=== PATIENT | female | born 1995 | race Caucasian/White ===

== ENCOUNTER 2016-09-09 03:58 | Inpatient (IN) | payer MEDICAID ==
[~2016-09-09] VITALS: Ht 195.6 cm; Wt 82.3 kg
[2016-09-09 04:29] VITALS: Ht 195.6 cm; Wt 82.3 kg
[2016-09-09 04:30] VITALS: BP 126/68; PULSE 75; RESP 18
--- NOTE | 2016-09-09 04:33 | HP ---
Date/Time of Note Date/Time of Note DATE: 09/09/16 TIME: 04:29 OB - History Hx of Present Free Text/Dictation 20 yo P1 @ term, no PNC, presented w PROM Chief Complaint: PROM Estimated Due Date: Sep 19, 2016 : 2 Para: 1 Spontaneous : 0 Therapeutic : 0 Care: None Ultrasounds: No ultrasounds Other Concerns: no PNC Past Family/Social History * Past Medical, Surgical, Family and Obstetric Histories reviewed from chart. OB Admission Exam Physical Exam HEENT: WNL Abdomen: WNL Extremities: Normal Cervical Dilatation: 3cm Effacement: 50% Station: -3 Membranes: Ruptured Heart Rate: 120's Accelerations: Accelerations Present Decelerations: No Decelerations Varibility: Moderate Contractions on Admission: >10 Minutes Apart Intensity: Mild OB Assessment/Plan Other Assessment: 20 yo P1 @ term, no PNC - reassuring status - PROM - GBS uknown, will start ampicillin - will admit and start pitocin if patient does not progress - sono for EFW and presentation BARBARA NINO MD Sep 09, 2016 04:33
--- NOTE | 2016-09-09 05:09 | RADRPT ---
PROCEDURE: Obstetrical ultrasound, limited. CLINICAL INDICATION: Pelvic pain. TECHNIQUE: Multiple sonographic images of the pelvis were obtained using transabdominal technique . Images were obtained with batista scale and color Doppler. The images were reviewed on a PACS works tation. COMPARISON: No prior studies are available for comparison. FINDINGS: There is a single living intrauterine gestation with the fetus in a vertex presentation. hear t tones of 141 beats per minute are identified. The placenta is anterior in location, grade 2. The re is low normal amniotic fluid volume with an ALEA of 9.4 cm. There is no evidence of placenta prev ia or abruption. Measurements were made in order to determine age. The results are as follows: BPD =9.47 cm HC =33.67 cm AC =34.60 cm FL =6.92 cm. Estimated gestational age of approximately 37 weeks and 6 days. The estimated date of delivery is 09/24/2016. The EFW = 3327 +/- 499 grams. Estimated weight percentage equals 47.8%. IMPRESSION: Single viable intrauterine gestation of approximately 37 weeks and 6 days, with an ultrasound MERRICK of 09/24/2016. .Mikey Trivedi MD, MD Date Time Electronically viewed and signed by .Mikey Trivedi MD, MD on 09/09/2016 05:08 .T/
--- NOTE | 2016-09-09 07:16 | TRIAGE ---
OB Triage Datetime Report Generated by CPN: 09/09/2016 07:16 Datetime: 09/09/2016 04:34 Time of Arrival: 09/09/2016 03:51 Arrived By: Wheelchair Arrived From: Home Chief Complaint: PT C/O LEAKING FLUID Movement: Present Contractions: Denies/Absent Rupture of Membranes: Ruptured Vaginal Discharge: Denies Recent Sexual Intercouse: Denies Abdominal Trauma: Not Applicable Time Provider Notified: 09/09/2016 04:25 Initial Plan: SVE,EFM AND TOCO APPLIED. TEST FOR SROM Datetime: 09/09/2016 04:32 Stage of : OB Triage Maternal Assessment Level of Consciousness: Fully Conscious Lower Extremities Edema: None Upper Extremities Edema: None Temperature Route: Oral Labor Evaluation Frequency: 5-7 Monitor Mode: External Duration (sec)2399: 60-80 Quality: Mild Resting Tone [place]: Relaxed Heart Rate FHR Baseline Rate: 135 Monitor Mode: External US Variability: Moderate 6-25 bpm Accelerations: 15X15 Decelerations: None Category: Category I Pain Assessment Pain Presence: None/Denies Datetime: 09/09/2016 04:25 Stage of : OB Triage Vaginal Exam Dilatation (cms): 3.0 Effacement (%): 50 Station: -3 Exam By: EBENEZER AJ Membrane Status: Ruptured
[2016-09-09] MEDS ORDERED: CARBOPROST 250 MCG INJ IM PRN (08:00)
[2016-09-09] MEDS ORDERED: LIDOCAINE 1% (MPF) 30 ML INJ INJ PRN (08:00)
[2016-09-09] MEDS ORDERED: AMPICILLIN 2 GM/NS (PMX) 100 ML IV ONE (08:00)
[2016-09-09] MEDS ORDERED: OXYTOCIN 30 UNITS/LR 500 ML IV PRN (08:00)
[2016-09-09] MEDS ORDERED: MISOPROSTOL 200 MCG TAB PR PRN (08:00)
[2016-09-09] MEDS ORDERED: OXYTOCIN 30 UNITS/LR 500 ML IV SCH ×3 (08:00→12:00)
[2016-09-09] MEDS ORDERED: BUTORPHANOL 2 MG INJ IV PRN ×2 (08:00)
[2016-09-09] MEDS ORDERED: METHYLERGONOVINE 0.2 MG INJ IM PRN (08:00)
[2016-09-09] MEDS: LACTATED RINGER'S 1,000 ML IV SCH ×3 (08:12→22:30)
[2016-09-09 09:23] LABS: ADD SCAN DIFF NO
[2016-09-09 09:29] LABS: BASOPHILS % 0.3 % (0.0-2.0); EOSINOPHILS # 0.1 10^3/ul (0.0-0.5); HEMATOCRIT 27.7 % (37.0-47.0); HEMOGLOBIN 9.2 g/dl (12.0-16.0); LYMPHOCYTES % 26.8 % (18.0-55.0); MEAN CORPUSCULAR HEMOGLOBIN 26.8 pg (29.0-33.0); MEAN CORPUSCULAR HGB CONC 33.2 g/dl (32.0-37.0); MEAN CORPUSCULAR VOLUME 80.8 fl (72.0-104.0); MEAN PLATELET VOLUME 10.1 fl (7.4-10.4); MONOCYTE # 0.7 10^3/ul (0.3-0.9); MONOCYTES % 10.1 % (0.0-13.0); NEUTROPHIL # 4.5 10^3/ul (1.6-7.5); NEUTROPHILS % 61.3 % (30.0-74.0); PLATELET COUNT 319 10^3/UL (140-415); RED BLOOD COUNT 3.43 10^6/ul (4.20-5.40); RED CELL DISTRIBUTION WIDTH 14.1 % (11.5-14.5); WHITE BLOOD COUNT 7.3 10^3/ul (4.8-10.8)
[2016-09-09 09:41] LABS: INR 0.99; PROTIME 13.1 Sec (12.2-14.2)
[2016-09-09 09:42] LABS: PARTIAL THROMBOPLASTIN TIME 29.2 Sec (25.0-35.0)
[2016-09-09] MEDS: AMPICILLIN 1 GM/NS (PMX) 50 ML IV SCH ×3 (12:06→20:03)
[2016-09-09 14:22] LABS: ADD UMIC YES; UR BILIRUBIN (Dip) NEGATIVE (NEGATIVE); UR BLOOD (Dip) 1+ (NEGATIVE); UR CLARITY CLEAR (CLEAR); UR COLOR LT. YELLOW (YELLOW); UR GLUCOSE (Dip) NEGATIVE (NEGATIVE); UR KETONES (Dip) 15 (NEGATIVE); UR LEUKOCYTE ESTERASE (Dip) TRACE (NEGATIVE); UR NITRITE (Dip) NEGATIVE (NEGATIVE); UR TOTAL PROTEIN (Dip) TRACE (NEGATIVE); UR UROBILINOGEN (Dip) 0.2 E.U./dL (0.1-1.0)
[2016-09-09 14:40] LABS: UR BACTERIA OCCASIONAL
[2016-09-09 14:49] LABS: BARBITURATES Negative (NEGATIVE); BENZODIAZEPINES Negative (NEGATIVE); CANNABINOIDS Negative (NEGATIVE); COCAINE Negative (NEGATIVE); OPIATES Negative (NEGATIVE)
[2016-09-09] MEDS ORDERED: LACTATED RINGER'S 1,000 ML IV ONE (15:41)
[2016-09-09] MEDS ORDERED: CITRIC ACID/SODIUM CITRATE 15 ML CUP ONE (15:47)
[2016-09-09] MEDS ORDERED: ONDANSETRON 4 MG INJ ONE (15:47)
[2016-09-09] MEDS ORDERED: CITRIC ACID/SODIUM CITRATE 15 ML CUP PO ONE (16:00)
[2016-09-09] MEDS ORDERED: PROCHLORPERAZINE 10 MG INJ IV PRN (16:00)
[2016-09-09] MEDS ORDERED: morphine 2 MG INJ IV PRN ×2 (16:00)
[2016-09-09] MEDS ORDERED: ONDANSETRON 4 MG INJ IV ONE (16:00)
[2016-09-09] MEDS ORDERED: ONDANSETRON 4 MG INJ IV PRN (16:00)
[2016-09-09] MEDS ORDERED: KETOROLAC 30 MG INJ IV PRN (16:00)
[2016-09-09] MEDS ORDERED: DIPHENHYDRAMINE 50 MG INJ IV PRN (16:00)
[2016-09-09] MEDS ORDERED: FENTAnyl 2MCG/ML-ROPIV 0.2% 100 ML BAG EPI SCH ×2 (16:00)
[2016-09-09] MEDS ORDERED: NALOXONE (0.4 MG/ML) INJ IV PRN (16:00)
[2016-09-09] MEDS: LACTATED RINGER'S 1,000 ML IV PRN ×2 (16:02→16:21)
[2016-09-10] VITALS (8 sets, daily range): BP systolic 100–135; BP diastolic 52–92; PULSE 70–96; RESP 16–19
[2016-09-10] MEDS: LACTATED RINGER'S 1,000 ML IV* SCH ×3 (01:12→17:12)
--- NOTE | 2016-09-10 01:23 | LDN ---
Date/Time of Note Date/Time of Note DATE: 09/10/16 TIME: 01: Delivery Summary over an intact perineum of a viable baby boy weighing 4225 grams, or 9# 5oz , 20" long, and with Apgars of 9/9. Weeks of Gestation 38w 4d Placenta Delivered: Spontaneously Meconium: none Episiotomy: No Perineal laceration: 0 Laceration repair: First degree left vaginal laceration repaired with 2-0 chromic for hemostasis. Anesthesia type: Epidural Estimated blood loss: 300 Sponge & Needle done & correct: Yes All needle counts correct: Yes Any foreign bodies felt in the: No (vagina) Problems: Infant Delivery Information Sex Infant Sex: male Apgars 1 Minute: 9 5 Minute: 9 Suctioning Nose & mouth suctioned at gary: Yes Delee suction performed: No Umbilical Cord Umbilical cord with: 3 Vessels Cord presentations: nuchal cord Nuchal cord present X: 1 Cord Blood was obtained: Yes Mother & Baby Disposition Disposition Mom & Baby to Maternity; Good: Yes Baby to NICU: No JEAN MARIE BELLA MD Sep 10, 2016 01:23
[2016-09-10] MEDS ORDERED: OXYCODONE/ASPIRIN (4.88/325) TAB PO PRN (01:30)
[2016-09-10] MEDS ORDERED: CARBOPROST 250 MCG INJ IM PRN (01:30)
[2016-09-10] MEDS ORDERED: MISOPROSTOL 200 MCG TAB PR PRN (01:30)
[2016-09-10] MEDS ORDERED: OXYTOCIN 30 UNITS/LR 500 ML IV PRN (01:30)
[2016-09-10] MEDS ORDERED: METHYLERGONOVINE 0.2 MG INJ IM PRN (01:30)
[2016-09-10] MEDS ORDERED: LANOLIN 7 GM TUBE TOP PRN (01:30)
[2016-09-10] MEDS: OXYTOCIN 30 UNITS/LR 500 ML IV SCH ×2 (01:47→05:23)
[2016-09-10] MEDS: IBUPROFEN 600 MG TAB PO SCH ×4 (05:23→23:34)
--- NOTE | 2016-09-10 15:56 | RADRPT ---
PROCEDURE: XR Chest. CLINICAL INDICATION: Positive PPD, shortness of breath TECHNIQUE: PA and Lateral views of the chest were obtained. COMPARISON: None. FINDINGS: The cardiomediastinal silhouette is within normal limits. The lungs are clear. No signs of pleural f luid or pneumothorax are seen. The osseous structures and soft tissues are unremarkable. IMPRESSION: No evidence for active cardiopulmonary disease. RPTAT: PP .Gabby Soto MD, MD Date Time Electronically viewed and signed by .Gabby Soto MD, on 09/10/2016 15:55 .F/
[2016-09-11 03:50] VITALS: BP 116/78; PULSE 80; RESP 19
[2016-09-11] MEDS: IBUPROFEN 600 MG TAB PO SCH ×4 (06:07→23:39)
[2016-09-11 08:15] LABS: ADD SCAN DIFF NO
[2016-09-11 08:21] LABS: BASOPHILS % 0.2 % (0.0-2.0); EOSINOPHILS # 0.2 10^3/ul (0.0-0.5); EOSINOPHILS % 2.1 % (0.0-7.0); HEMOGLOBIN 8.2 g/dl (12.0-16.0); LYMPHOCYTES # 3.2 10^3/ul (0.8-2.9); LYMPHOCYTES % 31.3 % (18.0-55.0); MEAN CORPUSCULAR HEMOGLOBIN 26.6 pg (29.0-33.0); MEAN CORPUSCULAR HGB CONC 32.8 g/dl (32.0-37.0); MEAN CORPUSCULAR VOLUME 81.2 fl (72.0-104.0); MEAN PLATELET VOLUME 10.4 fl (7.4-10.4); NEUTROPHIL # 5.6 10^3/ul (1.6-7.5); NEUTROPHILS % 55.6 % (30.0-74.0); PLATELET COUNT 289 10^3/UL (140-415); RED BLOOD COUNT 3.08 10^6/ul (4.20-5.40); RED CELL DISTRIBUTION WIDTH 14.2 % (11.5-14.5); WHITE BLOOD COUNT 10.1 10^3/ul (4.8-10.8)
--- NOTE | 2016-09-11 10:42 | PN ---
Date/Time of Note Date/Time of Note DATE: 09/11/16 TIME: 10:41 OB Subjective Subjective Subjective Post normal vaginal delivery day 1 Afebrile vital sign stable abdomen soft uterus firm lochia normal extremity normal HONORIO OZUNA MD Sep 11, 2016 10:42
[2016-09-11 13:58] LABS: RUBELLA ANTIBODY - IGG <0.90 index
[2016-09-11 16:00] VITALS: BP 119/72; PULSE 81; RESP 18
[2016-09-11 19:45] VITALS: BP 119/59; PULSE 81; RESP 17
[2016-09-12 04:00] VITALS: BP 106/65; PULSE 76; RESP 19
[2016-09-12] MEDS: IBUPROFEN 600 MG TAB PO SCH ×3 (06:00→18:00)
[2016-09-12 08:30] VITALS: BP 111/72; PULSE 81; RESP 17
[2016-09-12] MEDS ORDERED: DIPHTH/TET/ACEL PERTUSS (ADULT) 0.5 ML VIAL IM* ONE (09:00)
--- NOTE | 2016-09-12 17:49 | PD.PPDC ---
[employer] Discharge Instruction Condition Patient Condition: Good Diet Diet: Resume Regular Diet Activity/Restrictions Activity: Normal Activity May Shower Follow-up Follow-up with Physician: 2, Week/Weeks Provider Information: Appointment clinic for check in 2 weeks Return to clinic for [employer] Instructions: Fever greater than 101 Chills Worsening abdominal pain Excessive Vaginal Bleeding More than 2 pads per hour Unable to tolerate diet OB Instructions: Breast Tenderness Depression Blurried Vision Headache HONORIO OZUNA MD Sep 12, 2016 17:48
--- NOTE | 2016-09-12 17:51 | DS ---
Date/Time of Note Date/Time of Note DATE: 09/12/16 TIME: 17:49 Discharge Summary Admission/Discharge Info Admit Date/Time Sep 09, 2016 at 05:54 Discharge Date/Time September 12, 2016 at 1745 Final Diagnosis Day 2 post normal vaginal delivery Patient Condition: Good Procedures Normal vaginal delivery Hx of Present Illness Term in labor Hospital Course Satisfactory uneventful Follow-up Plan Appointment clinic in 2 weeks for check Primary Care Provider Care Physician No Primary Time spent on discharge: < 30 minutes HONORIO OZUNA MD Sep 12, 2016 17:51
== END 2016-09-12 18:20 | disposition home or self-care (01) | DRG 775 ==
LOC: OBT 03:58 → L-D 04:00 → OBT 05:53 → L-D 05:54 → PP1 09-10 03:11
PROVIDERS: ADMIT Obstetrics & Gynecology; ATTEND Obstetrics & Gynecology
PROC: 10E0XZZ Delivery of Products of Conception, External Approach (ICD-10-PCS; principal; 2016-09-10)
PROC: 0HQ9XZZ Repair Perineum Skin, External Approach (ICD-10-PCS; 2016-09-10)
PROC: 3E033VJ Introduction of Other Hormone into Peripheral Vein, Percutaneous Approach (ICD-10-PCS; 2016-09-10)
DX: O69.81X0 Labor and delivery complicated by cord around neck, without compression, not applicable or unspecified (principal); O71.4 Obstetric high vaginal laceration alone; O99.02 Anemia complicating childbirth; Z3A.38 38 weeks gestation of pregnancy; Z37.0 Single live birth
CPT/HCPCS: 62319; 71020; 76815; 80307; 81001; 85025; 85610; 85730; 86592; 86703; 86762; 86850; 86885; 86900; 86901; 87340; 90715; 99464; G0463; J0290; J2405; J2590; J2790; J3010; J7120